=== PATIENT | female | born 1990 | race Caucasian/White ===

== ENCOUNTER 2020-01-03 19:25 | Inpatient (IN) | payer BC ==
[2020-01-03] MEDS ORDERED: Sodium Chloride 0.9% 10 ML Syringe FLUSH PRN (19:50)
[2020-01-03] MEDS ORDERED: Nalbuphine 10 MG/ML Syringe IVPUSH PRN (19:50)
[2020-01-03] MEDS ORDERED: Lactated Ringers 1,000 ML IV SCH (20:00)
[2020-01-03] MEDS ORDERED: Oxytocin/Lactated Ringers 10 UNIT/1,000 ML BAG IV SCH (20:00)
--- NOTE | 2020-01-03 20:41 | PCM.LDHP ---
L&D History of Present Illness - General Date of Service: 01/03/20 Admit Problem/Dx: Patient Status Order with Admit Dx/Problem 01/03/20 19:51 Patient Status [ADT] Routine Admission Diagnosis/Problem Admission Diagnosis/Problem Source of Information: Patient History Limitations: Reports: No Limitations - History of Present Illness Introduction:: 29 year old at 38w2d here in active labor. PNC with Dr. Haile complicated by history of precipitous delivery with shoulder dystocia that resolved when MD arrived. 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 esophagogastroduodenoscopy Social & Family History - Family History Family Medical History: Noncontributory - Caffeine Use Caffeine Use: Reports: Coffee, Soda H&P Review of Systems - Review of Systems: Review Of Systems: See Below General: Reports: No Symptoms HEENT: Reports: No Symptoms Pulmonary: Reports: No Symptoms Cardiovascular: Reports: No Symptoms Gastrointestinal: Reports: No Symptoms Genitourinary: Reports: No Symptoms Musculoskeletal: Reports: No Symptoms Skin: Reports: No Symptoms Psychiatric: Reports: No Symptoms Neurological: Reports: No Symptoms Hematologic/Lymphatic: Reports: No Symptoms Immunologic: Reports: No Symptoms L&D Exam - Exam Exam: See Below - Vital Signs Vital Signs: Last Vital Signs Temp 37.1 C 01/03/20 19:36 Pulse 112 H 01/03/20 19:36 Resp 16 01/03/20 19:36 BP 141/86 H 01/03/20 19:36 Pulse Ox 99 01/03/20 19:36 Weight: 80.694 kg - OB Specific Contraction Intensity: Mild to Moderate Movement: Active Heart Tones: Present Heart Tones per Min: 145 Heart Rate (FHR) Variability: Moderate (6-25 bmp) Presentation: Vertex - Hsu Score Hsu Score Cervix Position: Midposition Hsu Score Consistency: Soft Hsu Score Effacement: >80% Hsu Score Dilation: > 5 cm Hsu Score 's Station: -1 ,0 Hsu Score Total: 11 - Exam General: Alert, Oriented HEENT: PERRLA, Conjunctiva Clear, EACs Clear, EOMI, Hearing Intact, Mucosa Moist & [place], Nares Patent, Normal Nasal Septum, Posterior Pharynx Clear, TMs Clear Neck: Supple, Trachea Midline Lungs: Clear to Auscultation, Normal Respiratory Effort Cardiovascular: Regular Rate, Regular Rhythm GI/Abdominal Exam: Normal Bowel Sounds, Soft, Non-Tender, No Organomegaly, No Distention, No Abnormal Bruit, No Mass, Pelvis Stable Back Exam: Normal Inspection, Full Range of Motion Extremities: Normal Inspection, Normal Range of Motion, Non-Tender, No Pedal Edema, Normal Capillary Refill Skin: Warm, Dry, Intact Neurological: Cranial Nerves Intact, Reflexes Equal Bilateral Psychiatric: Alert, Normal Affect, Normal Mood - Patient Data Lab Results Last 24 hrs: Laboratory Results - last 24 hr 01/03/20 Range/Units 20:02 WBC 10.36 H (3.98-10.04) K/mm3 RBC 4.43 (3.98-5.22) M/mm3 Hgb 10.0 L (11.2-15.7) gm/dl Hct 33.7 L (34.1-44.9) % MCV 76.1 L (79.4-94.8) fl MCH 22.6 L (25.6-32.2) pg MCHC 29.7 L (32.2-35.5) g/dl RDW Std Deviation 49.4 H (36.4-46.3) fL Plt Count 240 (182-369) K/mm3 MPV 11.0 (9.4-12.3) fl Neut % (Auto) 69.2 (34.0-71.1) % Lymph % (Auto) 22.8 (19.3-51.7) % [place] % (Auto) 6.3 (4.7-12.5) % Eos % (Auto) 1.2 (0.7-5.8) Baso % (Auto) 0.1 (0.1-1.2) % Neut # (Auto) 7.18 H (1.56-6.13) K/mm3 Lymph # (Auto) 2.36 (1.18-3.74) K/mm3 [place] # (Auto) 0.65 H (0.24-0.36) K/mm3 Eos # (Auto) 0.12 (0.04-0.36) K/mm3 Baso # (Auto) 0.01 (0.01-0.08) K/mm3 Result Diagrams: 01/03/20 20:02 Problem List Initiated/Reviewed/Updated: Yes Orders Last 24hrs: Active Orders 24 hr Category Date Time Status Patient Status [ADT] Routine ADT 01/03/20 19:51 Active Activity as Tolerated [RC] PFP Care 01/03/20 19:51 Active Communication Order [RC] ASDIRECTED Care 01/03/20 19:51 Active Heart Tones [RC] ASDIRECTED Care 01/03/20 19:51 Active Non Stress Test [RC] PER UNIT ROUTINE Care 01/03/20 19:51 Active Notify Provider [RC] PFP Care 01/03/20 19:51 Active Notify Provider [RC] PRN Care 01/03/20 19:51 Active Peripheral IV Care [RC] . DIRECTED Care 01/03/20 19:51 Active Vital Signs [RC] PER UNIT ROUTINE Care 01/03/20 19:51 Active CBC WITH AUTO DIFF [HEME] Stat Lab 01/03/20 20:02 Results RAPID PLASMA REAGIN,RPR [CHEM] Routine Lab 01/03/20 20:02 Received TYPE AND SCREEN [BBK] Stat Lab 01/03/20 20:02 Received Lactated Ringers [Ringers, Lactated] 1,000 ml Med 01/03/20 20:00 Active IV ASDIRECTED Nalbuphine [Nubain] Med 01/03/20 19:50 Active 10 mg IVPUSH Q2H PRN Oxytocin/Lactated Ringers [Pitocin in LR 10 Units/1,000 Med 01/03/20 20:00 Active ML] 10 unit in 1,000 ml IV .CONTINUOUS Sodium Chloride 0.9% [Saline Flush] Med 01/03/20 19:50 Active 10 ml FLUSH ASDIRECTED PRN Electronic Heart Tones Ext w TOCO [WOMSER] Oth 01/03/20 19:51 Ordered Routine Electronic Heart Tones Internal [WOMSER] Per Unit Oth 01/03/20 19:51 Ordered Routine Peripheral IV Insertion Adult [OM.PC] Routine Oth 01/03/20 19:51 Ordered Resuscitation Status Routine Resus Stat 01/03/20 19:50 Ordered Medication Orders Oxytocin/Lactated Ringer's (Pitocin In Lr 10 Units/1,000 Ml) 10 unit in 1,000 mls @ 500 mls/hr IV .CONTINUOUS KAYLEE Lactated Ringer's (Ringers, Lactated) 1,000 mls @ 100 mls/hr IV ASDIRECTED KAYLEE Nalbuphine HCl (Nubain) 10 mg IVPUSH Q2H PRN PRN Reason: Pain Sodium Chloride (Saline Flush) 10 ml FLUSH ASDIRECTED PRN PRN Reason: Keep Vein Open Assessment/Plan Comment:: 29 year old here in active labor GBS neg.
--- NOTE | 2020-01-03 22:15 | PCM.SN.2 ---
- Free Text/Narrative Note: Stage I - Patient presented in active labor. AROM of meconium. Progressed to complete. Stage II - of viable female, weight 3600, 7/9 APGARS at 2150. Head delivered in controlled manner over intact perineum. Body and shoulders atraumatically. To maternal abdomen. Cord clamped and cut. Cord blood collected. Stage III - of intact placenta. 3vc. No laceration. EBL 300.
[2020-01-03] MEDS ORDERED: Hydrocortisone Acetate 25 MG Supp RECTAL PRN (22:20)
[2020-01-03] MEDS ORDERED: Benzocaine/Menthol 20%-0.5% Spray 56 GM Canister TOP PRN (22:20)
[2020-01-03] MEDS ORDERED: Docusate Sodium 100 MG Cap PO PRN (22:20)
[2020-01-03] MEDS ORDERED: Witch Hazel Medicated Pads 40/Jar TOP PRN (22:20)
[2020-01-03] MEDS: Ibuprofen 600 MG Tab PO PRN (23:08)
[2020-01-04] MEDS: Ibuprofen 600 MG Tab PO PRN ×3 (05:33→18:48)
--- NOTE | 2020-01-04 07:41 | PCM.PNPP ---
- General Info Date of Service: 01/04/20 - Review of Systems General: Reports: No Symptoms HEENT: Reports: No Symptoms Pulmonary: Reports: No Symptoms Cardiovascular: Reports: No Symptoms Gastrointestinal: Reports: No Symptoms Genitourinary: Reports: No Symptoms Musculoskeletal: Reports: No Symptoms Skin: Reports: No Symptoms Neurological: Reports: No Symptoms Psychiatric: Reports: No Symptoms - General Info Date of Service: 01/04/20 - Patient Data Vital Signs - Most Recent: Last Vital Signs Temp 36.6 C 01/04/20 03:51 Pulse 84 01/04/20 03:51 Resp 14 01/04/20 03:51 BP 119/63 01/04/20 03:51 Pulse Ox 99 01/04/20 03:51 Weight - Most Recent: 80.694 kg I&O - Last 24 Hours: Intake & Output 01/03/20 01/04/20 01/04/20 22:59 06:59 14:59 Intake Total 1000 Balance 1000 Lab Results - Last 24 Hours: Laboratory Results - last 24 hr 01/03/20 01/03/20 Range/Units 20:02 20:02 WBC 10.36 H (3.98-10.04) K/mm3 RBC 4.43 (3.98-5.22) M/mm3 Hgb 10.0 L (11.2-15.7) gm/dl Hct 33.7 L (34.1-44.9) % MCV 76.1 L (79.4-94.8) fl MCH 22.6 L (25.6-32.2) pg MCHC 29.7 L (32.2-35.5) g/dl RDW Std Deviation 49.4 H (36.4-46.3) fL Plt Count 240 (182-369) K/mm3 MPV 11.0 (9.4-12.3) fl Neut % (Auto) 69.2 (34.0-71.1) % Lymph % (Auto) 22.8 (19.3-51.7) % [place] % (Auto) 6.3 (4.7-12.5) % Eos % (Auto) 1.2 (0.7-5.8) Baso % (Auto) 0.1 (0.1-1.2) % Neut # (Auto) 7.18 H (1.56-6.13) K/mm3 Lymph # (Auto) 2.36 (1.18-3.74) K/mm3 [place] # (Auto) 0.65 H (0.24-0.36) K/mm3 Eos # (Auto) 0.12 (0.04-0.36) K/mm3 Baso # (Auto) 0.01 (0.01-0.08) K/mm3 Manual Slide Review Abnormal smear Blood Type A POSITIVE Gel Antibody Screen Negative Med Orders - Current: Current Medications Benzocaine/Menthol (Dermoplast Pain Relief [place]) 0 gm TOP ASDIRECTED PRN PRN Reason: Perineal Comfort Measure Docusate Sodium (Colace) 100 mg PO BID PRN PRN Reason: Constipation Hydrocortisone Acetate (Anucort-Hc) 25 mg RECTAL BID PRN PRN Reason: Hemorrhoid pain Ibuprofen (Motrin) 600 mg PO Q6H PRN PRN Reason: Mild pain or fever Last Admin: 01/04/20 05:33 Dose: 600 mg Documented by: Silver Ayala) 1 pad TOP ASDIRECTED PRN PRN Reason: Pain Discontinued Medications Oxytocin/Lactated Ringer's (Pitocin In Lr 10 Units/1,000 Ml) 10 unit in 1,000 mls @ 500 mls/hr IV .CONTINUOUS KAYLEE Last Admin: 01/03/20 21:54 Dose: 500 mls/hr Documented by: Lactated Ringer's (Ringers, Lactated) 1,000 mls @ 100 mls/hr IV ASDIRECTED KAYLEE Nalbuphine HCl (Nubain) 10 mg IVPUSH Q2H PRN PRN Reason: Pain Sodium Chloride (Saline Flush) 10 ml FLUSH ASDIRECTED PRN PRN Reason: Keep Vein Open - Interaction Support Person: - Recovery Exam Fundal Tone: Firm Fundal Level: At Umbilicus Fundal Placement: Midline Lochia Amount: Small, Moderate Lochia Color: Rubra/Red Perineum Description: Intact, Minimal Bruising/Swelling Bladder Status: Voiding - Exam General: Alert, Oriented HEENT: Pupils Equal Neck: Supple Lungs: Clear to Auscultation, Normal Respiratory Effort Cardiovascular: Regular Rate, Regular Rhythm GI/Abdominal Exam: Normal Bowel Sounds, Soft, Non-Tender, No Organomegaly, No Distention, No Abnormal Bruit, No Mass, Pelvis Stable Extremities: Normal Inspection, Normal Range of Motion, Non-Tender, No Pedal Edema, Normal Capillary Refill Neurological: No New Focal Deficit Psy/Mental Status: Alert, Normal Affect, Normal Mood - Problem List Review Problem List Initiated/Reviewed/Updated: Yes - My Orders Last 24 Hours: My Active Orders 01/03/20 19:50 Resuscitation Status Routine 01/03/20 20:02 RAPID PLASMA REAGIN,RPR [CHEM] Routine 01/03/20 21:16 PATIENT RETYPE [BBK] Routine 01/03/20 22:20 Benzocaine/Menthol [Dermoplast Pain Relief [place]] See Dose Instructions TOP ASDIRECTED PRN Docusate Sodium [Colace] 100 mg PO BID PRN Hydrocortisone Acetate [Anucort-HC] 25 mg RECTAL BID PRN Ibuprofen [Motrin] 600 mg PO Q6H PRN witch [place] [Tucks] 1 pad TOP ASDIRECTED PRN 01/03/20 22:20 Activity as Tolerated [RC] PER UNIT ROUTINE Vital Signs [RC] 03,09,15,21 Assess Lochia [WOMSER] Per Unit Routine Assess Uterine Involution [WOMSER] Per Unit Routine Breast Pump [WOMSER] Per Unit Routine Medication Administration Instruction [OM.PC] Routine Perineal Care [OM.PC] Per Unit Routine Sitz Bath [OM.PC] Per Unit Routine 01/03/20 22:30 Heat Therapy [OM.PC] PRN 01/04/20 22:30 Heat Therapy [OM.PC] PRN - Plan Plan:: .
[2020-01-04] MEDS ORDERED: Acetaminophen/Butalbital/Caffeine 325-50-40 MG Tab PO ONE (12:59)
[2020-01-04] MEDS ORDERED: Acetaminophen 325 MG Tab PO PRN (21:09)
[2020-01-05] MEDS: Ibuprofen 600 MG Tab PO PRN ×2 (01:53→08:02)
[2020-01-05] MEDS ORDERED: Measles, Mumps & Rubella Vaccine 0.5 ML SDV SUBCUT ONE (08:00)
--- NOTE | 2020-01-05 08:04 | PCM.DCSUM1 ---
Discharge Summary - Hospital Course Diagnosis: Stroke: No - Discharge Data Discharge Date: 01/05/20 Discharge Disposition: Home, Self-Care 01 Condition: Good - Referral to Home Health Primary Care Physician: Angela Haile MD - Patient Summary/Data Hospital Course: Admitted in active labor, uncomplicated - Patient Instructions Diet: Usual Diet as Tolerated Activity: No Strenuous Activities Activity, Other: pelvic rest Driving: May Drive Today Showering/Bathing: May Shower Notify Provider of: Fever, Increased Pain, Swelling and Redness, Drainage, Nausea and/or Vomiting - Discharge Plan *PRESCRIPTION DRUG MONITORING PROGRAM REVIEWED*: No *COPY OF PRESCRIPTION DRUG MONITORING REPORT IN PATIENT CHARITO: No Home Medications: Home Meds Iron 01/03/20 [History] Omeprazole 20 mg PO 01/03/20 [History] Vits #93/Iron Fum/FA [ Formula Tablet] 1 each PO 01/03/20 [History] Sertraline [Zoloft] 100 mg PO DAILY 01/03/20 [History] Referrals: Angela Haile MD [Primary Care Provider] - (2 weeks) - Discharge Summary/Plan Comment DC Time >30 min.: No - General Info Date of Service: 01/05/20 Functional Status: Reports: Pain Controlled - Review of Systems General: Reports: No Symptoms HEENT: Reports: No Symptoms Pulmonary: Reports: No Symptoms Cardiovascular: Reports: No Symptoms Gastrointestinal: Reports: No Symptoms Genitourinary: Reports: No Symptoms Musculoskeletal: Reports: No Symptoms Skin: Reports: No Symptoms Neurological: Reports: No Symptoms Psychiatric: Reports: No Symptoms - Patient Data Vitals - Most Recent: Last Vital Signs Temp 36.9 C 01/05/20 02:39 Pulse 76 01/05/20 02:39 Resp 15 01/05/20 02:39 BP 128/79 01/05/20 02:39 Pulse Ox 97 01/05/20 02:39 Weight - Most Recent: 80.694 kg Lab Results - Last 24 hrs: Laboratory Results - last 24 hr 01/04/20 01/04/20 01/04/20 Range/Units 13:10 13:10 14:35 WBC 10.92 H (3.98-10.04) K/mm3 RBC 3.83 L (3.98-5.22) M/mm3 Hgb 8.6 L (11.2-15.7) gm/dl Hct 29.3 L (34.1-44.9) % MCV 76.5 L (79.4-94.8) fl MCH 22.5 L (25.6-32.2) pg MCHC 29.4 L (32.2-35.5) g/dl RDW Std Deviation 48.2 H (36.4-46.3) fL Plt Count 195 (182-369) K/mm3 MPV 10.5 (9.4-12.3) fl Neut % (Auto) 67.1 (34.0-71.1) % Lymph % (Auto) 22.5 (19.3-51.7) % [place] % (Auto) 8.3 (4.7-12.5) % Eos % (Auto) 1.4 (0.7-5.8) Baso % (Auto) 0.3 (0.1-1.2) % Neut # (Auto) 7.33 H (1.56-6.13) K/mm3 Lymph # (Auto) 2.46 (1.18-3.74) K/mm3 [place] # (Auto) 0.91 H (0.24-0.36) K/mm3 Eos # (Auto) 0.15 (0.04-0.36) K/mm3 Baso # (Auto) 0.03 (0.01-0.08) K/mm3 Manual Slide Review Abnormal smear BUN 6 L (7-18) mg/dL Creatinine 0.7 (0.55-1.02) mg/dL Est Cr Clr Drug Dosing 95.48 mL/min Estimated GFR (MDRD) > 60 (>60) mL/min Uric Acid 6.6 H (2.6-6.0) mg/dL AST 24 (15-37) U/L ALT 14 (14-59) U/L Lactate Dehydrogenase 232 (81-234) U/L Ur Random Creatinine 42.8 (30.0-125.0) mg/dL U Random Total Protein < 6.0 (0.0-11.8) mg/dL Protein/Creatinin Ratio TNP Med Orders - Current: Current Medications Acetaminophen (Tylenol) 650 mg PO Q4H PRN PRN Reason: Headache Last Admin: 01/04/20 21:35 Dose: 650 mg Documented by: Benzocaine/Menthol (Dermoplast Pain Relief [place]) 0 gm TOP ASDIRECTED PRN PRN Reason: Perineal Comfort Measure Docusate Sodium (Colace) 100 mg PO BID PRN PRN Reason: Constipation Hydrocortisone Acetate (Anucort-Hc) 25 mg RECTAL BID PRN PRN Reason: Hemorrhoid pain Ibuprofen (Motrin) 600 mg PO Q6H PRN PRN Reason: Mild pain or fever Last Admin: 01/05/20 01:53 Dose: 600 mg Documented by: Silver Strange (Zohaib) 1 pad TOP ASDIRECTED PRN PRN Reason: Pain Discontinued Medications Acetaminophen/Butalbital/Caffeine (Fioricet 325-50-40 Mg) 1 tab PO ONETIME ONE Stop: 01/04/20 13:00 Last Admin: 01/04/20 13:05 Dose: 1 tab Documented by: Oxytocin/Lactated Ringer's (Pitocin In Lr 10 Units/1,000 Ml) 10 unit in 1,000 mls @ 500 mls/hr IV .CONTINUOUS KAYLEE Last Admin: 01/03/20 21:54 Dose: 500 mls/hr Documented by: Lactated Ringer's (Ringers, Lactated) 1,000 mls @ 100 mls/hr IV ASDIRECTED KAYLEE Measles/Mumps/Rubella Vaccine Live (M-M-R Ii Vaccine) 0.5 ml SUBCUT .ONCE ONE Stop: 01/05/20 08:01 Nalbuphine HCl (Nubain) 10 mg IVPUSH Q2H PRN PRN Reason: Pain Sodium Chloride (Saline Flush) 10 ml FLUSH ASDIRECTED PRN PRN Reason: Keep Vein Open - Exam General: Reports: Alert, Oriented HEENT: Reports: Pupils Equal, Pupils Reactive, EOMI, Mucous Membr. Moist/[place] Neck: Reports: Supple Lungs: Reports: Clear to Auscultation, Normal Respiratory Effort Cardiovascular: Reports: Regular Rate, Regular Rhythm GI/Abdominal Exam: Normal Bowel Sounds, Soft, Non-Tender, No Organomegaly, No Distention, No Abnormal Bruit, No Mass, Pelvis Stable Back Exam: Reports: Normal Inspection, Full Range of Motion Extremities: Normal Inspection, Normal Range of Motion, Non-Tender, No Pedal Edema, Normal Capillary Refill Skin: Reports: Warm, Dry, Intact Wound/Incisions: Reports: Healing Well Neurological: Reports: No New Focal Deficit Psy/Mental Status: Reports: Alert, Normal Affect
== END 2020-01-05 10:15 | disposition home or self-care (01) | DRG 560 ==
LOC: JD.OBCHECK 19:25 → JD.OB 19:51 → OBSVTOIN 21:50 → JD.OB 21:51
PROVIDERS: ADMIT Obstetrics & Gynecology; ATTEND Obstetrics & Gynecology
PROC: 10E0XZZ Delivery of Products of Conception, External Approach (ICD-10-PCS; principal; 2020-01-03)
PROC: 10907ZC Drainage of Amniotic Fluid, Therapeutic from Products of Conception, Via Natural or Artificial Opening (ICD-10-PCS; 2020-01-03)
PROC: 3E0234Z Introduction of Serum, Toxoid and Vaccine into Muscle, Percutaneous Approach (ICD-10-PCS; 2020-01-03)
DX: O99.62 Diseases of the digestive system complicating childbirth (principal); O99.344 Other mental disorders complicating childbirth; Z3A.38 38 weeks gestation of pregnancy; Z37.0 Single live birth; K21.9 Gastro-esophageal reflux disease without esophagitis; F41.9 Anxiety disorder, unspecified; F32.9 Major depressive disorder, single episode, unspecified; Z23 Encounter for immunization; O77.0 Labor and delivery complicated by meconium in amniotic fluid
CPT/HCPCS: 36415; 59025; 59409; 82565; 82570; 83615; 84156; 84450; 84460; 84520; 84550; 85025; 86592; 86850; 86900; 86901; 90471; 90707; A9270-GY; J2590

== ENCOUNTER 2021-11-01 23:13 | Emergency (ER) | payer SELFPAY ==
[2021-11-02] MEDS ORDERED: diphenhydrAMINE 50 MG/ML SDV IVPUSH ONE
[2021-11-02] MEDS ORDERED: Lactated Ringers 1,000 ML IV ONE
[2021-11-02] MEDS ORDERED: Prochlorperazine 10 MG/2 ML SDV IVPUSH ONE
== END 2021-11-02 01:34 | disposition home or self-care (01) ==
LOC: JD.ED 23:13
DX: R51.9 Headache, unspecified (principal); F41.1 Generalized anxiety disorder
CPT/HCPCS: 96374; 99283; J1200; J7120

== ENCOUNTER 2023-07-04 20:58 | Emergency (ER) | payer OTHER ==
[2023-07-04] MEDS ORDERED: predniSONE 20 MG Tab PO ONE (21:25)
[2023-07-04] MEDS ORDERED: Famotidine 20 MG Tab PO ONE (21:26)
== END 2023-07-04 21:46 | disposition home or self-care (01) ==
LOC: JD.ED 20:58
DX: L50.9 Urticaria, unspecified (principal); T36.7X5A Adverse effect of antifungal antibiotics, systemically used, initial encounter; Z79.899 Other long term (current) drug therapy; Z88.8 Allergy status to other drugs, medicaments and biological substances
CPT/HCPCS: 99282; A9270; J7512